=== PATIENT | female | born 1985 | race African-American/Black ===

== ENCOUNTER 2017-07-04 17:00 | Outpatient (CLI) | payer BC | END 2017-07-04 17:01 | disposition home or self-care (01) | LOC: SLEEPLAB 17:00 | PROVIDERS: ATTEND Physician Assistant | DX: G47.33 Obstructive sleep apnea (adult) (pediatric) (principal); G47.10 Hypersomnia, unspecified; R06.3 Periodic breathing | CPT/HCPCS: 95806 ==